=== PATIENT | female | born 1960 | race Caucasian/White ===

== ENCOUNTER → 2017-01-20 10:35 | Outpatient (CLI) | payer BC | END | disposition home or self-care (01) | LOC: D.US 10:35 | DX: R10.9 Unspecified abdominal pain (principal) ==

== ENCOUNTER → 2017-05-11 12:19 | Outpatient (CLI) | payer BC | END | disposition home or self-care (01) | LOC: D.MRI 12:19 | DX: M75.41 Impingement syndrome of right shoulder (principal) ==

== ENCOUNTER → 2017-05-23 08:52 | Outpatient (CLI) | payer BC | END | disposition home or self-care (01) | LOC: D.MAMMO 08:15 → D.NM 08:52 | DX: E21.3 Hyperparathyroidism, unspecified (principal) ==

== ENCOUNTER 2017-06-02 05:33 | Day surgery (SDC) | payer BC ==
[2017-06-01 15:03] LABS: HEMATOCRIT 43.8 % (36.0-48.0); HEMOGLOBIN 15.1 g/dL (12-16); MCH 32.3 pg (26.0-34.0); MCHC 34.5 g/dL (31.0-37.0); MCV 93.8 fL (80.0-100.0); MEAN PLATELET VOLUME 9.4 fL (7.4-10.4); RBC 4.67 10x6/uL (4.00-5.40); WBC 9.8 10x3/uL (4.8-10.8)
[~2017-06-02 05:33] MED LIST: BAYER CHEWABLE81 MG PO; HYDROCHLOROTHIA25 MG PO; NIASPAN500 MG PO; ZESTRIL40 MG PO
[2017-06-02 08:11] VITALS: BP 143/85; BMI 26.8
[2017-06-02] MEDS ORDERED: PERCOCET 7.5/321 TAB PO (11:50)
--- NOTE | 2017-06-02 12:24 | NUR ---
PRE OPERATIVE BP 170/90
--- NOTE | 2017-06-02 14:58 | NUR ---
1420--IV DC'D, PT UP TO DRESS AT THIS TIME. ABI LI 1440--DISCHARGE INSTRUCTIONS GIVEN, PT VERBALIZES UNDERSTANDING. PT OFF UNIT VIA WC. ABI LI
--- NOTE | 2017-06-04 07:55 | OP ---
PATIENT NAME: AGUSTO LIAO MEDICAL RECORD: [id number] :62 LOCATION:[facility] ADMISSION DATE: SURGEON: SHAVONNE SEAMAN DO DATE OF OPERATION: 06/02/2017 PREOPERATIVE DIAGNOSES: Right shoulder labral tear and subacromial impingement with paralabral cyst. POSTOPERATIVE DIAGNOSES: Labral tear with subacromial impingement, paralabral cyst, and Gamaliel complex encountered during the procedure. INDICATIONS: Ms. Liao is a 56-year-old female who presented to my office with history of right shoulder pain with lifting and doing anything overhead. When she started dealing with it, I saw her in the office. X-rays were taken. No fractures or anything were seen on x-ray, but a type 2 acromion. She had a positive Iron sign, Sal, and Neer. MRI was done and a large posterior labrum tear was shown with paralabral cyst. They were quite large, measuring 4.6 cm. In some locations, they went from the spinoglenoid to the supraspinatus notch. She did not tolerate any other conservative management and desired something to be done. Once this was discussed with her, due to her age of 56, labral repair would not be done and it would be more prudent to do biceps tenodesis and to try to decompress the cyst wall in the surgery as well as subacromial decompression. Having an understanding of all this and risks and benefits, the patient verbally consented to the procedure and she is scheduled. DESCRIPTION OF PROCEDURE: The patient was given a block in the preoperative area by anesthesia. She was then taken to operative suite, placed in the supine position, intubated, given clindamycin preoperatively, then placed in the left lateral decubitus position with an axillary roll under her left axilla. Hernandez bag was then placed and inflated. Once this was done, the right shoulder was prepped and draped in a sterile fashion. Time-out was performed and everyone was in agreeance with correct side, site, and patient After she was prepped and draped, a 60-cc syringe with saline was used on an 18-gauge needle and injected into the shoulder joint itself, inflating the joint. An 11 blade scalpel was then used to make a posterior portal and the trocar was entered into the shoulder joint. Once this was done, the camera was entered in and the Robe complex was encountered as well as the posterior labral tear. The anterior portal was then established and portal was used for access. Once this was done, the [place] was used to tag the bicep tendon and then a grasper was used to grab the suture around the biceps tendon. The biceps was then tenodesed. Shaver was then used to probe the labrum and a tear was noted on the posterior labrum as well as the Gamaliel complex anteriorly. The rotator cuff on the articular side was also inspected and not seemed to have any tears whatsoever. Once this was done, the rest of the shoulder was inspected with the scope. There was nothing in the inferior gutter and the joint surface appeared to be normal. Subscapularis tendon was also intact. Once this was done, the scope was withdrawn from the shoulder joint itself and taken into the subacromial space and then the lateral portal was established with first an 18-gauge needle and then an 11 blade. A trocar was placed and shaver was used to do a bursectomy. Then, a bur and wand were used to clear off the acromion. Once this was encountered, there was a spur noted on the acromion. Bur was then taken into the joint and the acromion was shaved off to a level surface back to the posterior clavicle. Once this was done, the shaver was then reentered in the shoulder and a more thorough bursectomy was done. The cuff was inspected, not seeing any tears whatsoever in the rotator cuff. Once this was completed, OPERATIVE REPORT [id number] AGUSTO LIAO the scope was withdrawn and attention was drawn to the biceps tenodesis site. In the subpectoral region, an incision was made in the axilla just below the pec. Careful dissection was made down to the humerus itself. The biceps tendon was encountered and retrieved with a 90-degree hemostat. This was taken out through the wound. An Allis clamp was clamped on it. The sutures that had been tagged on the biceps was then removed and then a whipstitch was made in the biceps tendon itself. The biceps tenodesis button was placed on that suture. A hole was then drilled with soft tissue protector right into the anterior humerus and a button was placed down into the humerus. The biceps tendon was toggled down to the button and onto the humerus. A free needle was then used to suture over the anterior biceps tendon and a knot was tied on top of that. The excess tendon was then removed. Once this was done, the wound was copiously irrigated and closed with 2-0 Vicryl and 4-0 Monocryl, which was ran subcuticularly on the skin. The portal sites were then closed with 4-0 Monocryl in simple inverted interrupted fashion. Steri-Strips were placed over the portal sites. Dermabond was placed over the biceps tenodesis site. Adaptic, 4 x 4s, ABD, and Medipore tape were placed over the shoulder. The patient was placed in a sling, awakened in stable condition, and taken to the recovery room. Blood loss was minimal. TRANSINT:[id number] Voice Confirmation ID: [id number] DOCUMENT ID: [id number] SHAVONNE SEAMAN DO at 0755 CC: [id number] DICTATION DATE: 06/02/17 1201 ANESTHESIOLOGY PHYSICIAN ASSISTANT: 06/02/17 1434 [facility] 06/02/17 [id number] [place] [address]
== END 2017-06-02 14:40 | disposition home or self-care (01) ==
LOC: D.OPS 05:33 → D.PAN 10:15 → D.OPS 14:40
PROVIDERS: Anesthesiology
DX: S43.431A Superior glenoid labrum lesion of right shoulder, initial encounter (principal); F17.200 Nicotine dependence, unspecified, uncomplicated; Z01.812 Encounter for preprocedural laboratory examination

== ENCOUNTER → 2019-11-01 08:15 | Outpatient (CLI) | payer OTHER ==
[~2019-11-01 08:15] MED LIST changes: +PERCOCET 7.5/321 TAB PO
== END | disposition home or self-care (01) ==
LOC: D.MRI 08:15
PROVIDERS: ATTEND Orthopaedic Surgery
DX: M54.12 Radiculopathy, cervical region (principal)

== ENCOUNTER 2020-05-22 09:25 | Observation (INO) | payer OTHER ==
[2020-05-20 09:27] LABS: CALC OSMOLALITY 268 mosm/kg (275-300); CALCIUM 9.8 mg/dL (8.5-10.1); CARBON DIOXIDE 28.6 mmol/L (21.0-32.0); CHLORIDE - SERUM 99 mmol/L (98-107); CREATININE - SERUM 0.7 mg/dL (0.6-1.3); GLUCOSE 101 mg/dL (74-106); SODIUM 134 mmol/L (136-145); UREA NITROGEN 14 mg/dL (7-18); eGFR NON AFRICAN AMERICAN > 90 mL/min (90-120)
[2020-05-20 09:32] LABS: POTASSIUM - SERUM 4.5 mmol/L (3.5-5.1)
[2020-05-20 09:42] LABS: HEMATOCRIT 43.1 % (36.0-48.0); HEMOGLOBIN 14.7 g/dL (12-16); MCH 31.9 pg (26.0-34.0); MCHC 34.1 g/dL (31.0-37.0); MCV 93.5 fL (80.0-100.0); MEAN PLATELET VOLUME 9.8 fL (7.4-10.4); RBC 4.61 10x6/uL (4.00-5.40); RDW 12.3 % (11.5-14.5); WBC 6.6 10x3/uL (4.8-10.8)
--- NOTE | 2020-05-20 09:55 | NUR ---
PANS VITALS POX 99%, P 74, R 18, B/P 171/86
[2020-05-22] VITALS (16 sets, daily range): BP systolic 122–175; BP diastolic 59–87; Ht 162.6 cm; Wt 72.0 kg
[~2020-05-22] VITALS: Ht 162.6 cm; Wt 72.0 kg
--- NOTE | ~2020-05-22 | OP ---
PATIENT NAME: AGUSTO BRYANT MEDICAL RECORD: [id number] :62 [facility] ADMISSION DATE:05/22/20 SURGEON: SONIA COTTO MD DATE OF OPERATION: 05/23/2020 PREOPERATIVE DIAGNOSES: Osteophyte formation and disc herniation at C5-C6 and C6-C7 with C6 and C7 radiculopathies. POSTOPERATIVE DIAGNOSES: Osteophyte formation and disc herniation at C5-C6 and C6-C7 with C6 and C7 radiculopathies. PROCEDURE: Anterior cervical discectomy and fusion at C5-C6 and C6-C7, removal of osteophytes, separate anterior cervical plate and screws with C5-C6 and C6-C7with PEEK interbody cages at C5-C6 and C6-C7 and Inna bone allograft with stem cells. SURGEON: Sonia Cotto MD DESCRIPTION AND TECHNIQUE: After induction of general endotracheal anesthesia, the patient was positioned supine on the operating table. Neck was prepped and draped in usual sterile fashion. Fluoroscopic x-ray and freer localized the C5-C6 interspace. Following this, a 1:100,000 epinephrine and 1% lidocaine was infiltrated into the subcutaneous tissues, a transverse skin incision was carried out from the midline to the sternocleidomastoid muscle. The platysma was divided with sharp dissection with #15 blade. Using blunt and sharp dissection with Metzenbaum scissors, I proceeded in the avascular plane medial to the carotid sheath. The longus colli muscles were elevated from bodies of C5, C6, and C7. A self-retaining retractor was placed deep to the longus colli muscles. [place] distracting pins were placed in the bodies of C5, C6, and C7. The disc space was incised with C5-C6 and C6-C7. The disc material was removed with pituitary rongeurs and curettes. Osteophytes drilled away posteriorly under microscopic illumination of C5-C6 and C6-C7. The posterior longitudinal ligament was removed with Cloward rongeurs. Following this, dura was decompressed well. A PEEK interbody cage was placed in each of the C5-C6 and C6-C7 interspaces. Prior to this, it was filled with Inna bone allograft and bone stem cells. A separate anterior cervical plate and screws was used to span the C5-C6 and C6-C7 interspaces. Self-drilling screws were placed through the holes in the plate. Locking cams were tightened down over screw heads. Good position of the hardware was confirmed with fluoroscopic x-ray. Meticulous hemostasis was maintained throughout the wound and the wound was irrigated with copious amounts of Ancef irrigant solution. The platysma and subdermal layer closed with interrupted 3-0 Vicryl suture, skin was reapproximated with Steri-Strips and benzoin. A sterile dressing was applied to the wound. The patient was awakened in good condition and taken to recovery. All counts were reported as correct. Estimated blood loss was minimal. TRANSINT:[id number] Voice Confirmation ID: [id number] DOCUMENT ID: [id number] OPERATIVE REPORT [id number] AGUSTO BRYANT JOHN MD CC: [id number] DICTATION DATE: 05/31/20 1239 BAR MACHINE OPERATOR: 06/01/20 0200 [facility] 05/23/20 [id number] [place] [address]
[~2020-05-22 09:25] MED LIST changes: +MAG-OX 400 MG400 MG PO; +MULTI-DAY VITAM1 TAB PO; +VITAMIN B-12500 MCG PO
[2020-05-23] VITALS (8 sets, daily range): BP systolic 107–132; BP diastolic 52–68
--- NOTE | 2020-05-23 10:44 | NUR ---
DISCHARGE INSTRUCTIONS REVIEWED. PAPERWORK SIGNED. IV Natalia INFANTE.
== END 2020-05-23 10:55 | disposition home or self-care (01) ==
LOC: D.OPS 09:25 → D.PAN 13:00 → D.OPS 13:00 → D.CVICU 15:13 → OBSVTIME 15:30 → D.CVICU 05-23 10:55
PROVIDERS: Anesthesiology; ADMIT Neurological Surgery; ATTEND Neurological Surgery
DX: M50.122 Cervical disc disorder at C5-C6 level with radiculopathy (principal); I10 Essential (primary) hypertension